=== PATIENT | female | born 1995 | race Asian ===

== ENCOUNTER → 2023-10-23 | Outpatient (REF) | payer BC ==
[2023-10-23 11:30] LABS: HCG, SERUM QUALITATIVE POSITIVE (NEGATIVE)
== END ==
LOC: M LAB REF 10:49
PROVIDERS: ATTEND Family Medicine
DX: N91.1 Secondary amenorrhea (principal)

== ENCOUNTER → 2023-11-05 | Outpatient (CLI) | payer BC | LOC: M RAD 14:52 | PROVIDERS: ATTEND Physician Assistant | DX: R10.2 Pelvic and perineal pain (principal); N83.202 Unspecified ovarian cyst, left side; R93.89 Abnormal findings on diagnostic imaging of other specified body structures ==

== ENCOUNTER 2023-11-11 09:27 | Day surgery (SDC) | payer BC ==
[~2023-11-11] VITALS: Ht 165.1 cm; Wt 62.1 kg
[2023-11-11 10:06] LABS: HEMATOCRIT 40.1 % (36.0-47.0); HEMOGLOBIN 13.4 g/dl (12.0-15.5); MEAN CORPUSCULAR HEMOGLOBIN 29.9 pg (27.0-33.0); MEAN CORPUSCULAR HGB CONC 33.4 g/dl (32.0-36.5); MEAN CORPUSCULAR VOLUME 89.5 fl (80.0-96.0); PLATELET COUNT, AUTOMATED 306 10^3/uL (150-450); RED BLOOD COUNT 4.48 10^6/uL (4.00-5.40); WHITE BLOOD COUNT 7.4 10^3/uL (4.0-10.0)
[2023-11-11] MEDS ORDERED: LIDOCAINE 2% 100MG/5ML SDV (FOR ANES.) As Ordered ONE (10:54)
[2023-11-11] MEDS ORDERED: propofoL 200 MG/20 ML VIAL As Ordered ONE (10:54)
[2023-11-11] MEDS ORDERED: fentaNYL 100 MCG/2 ML INJECTION As Ordered ONE (10:55)
[2023-11-11] MEDS ORDERED: MIDAZOLAM INJ 2MG/2ML VIAL As Ordered ONE (10:56)
[2023-11-11] MEDS: DOXYCYCLINE HYCLATE 100MG TABLET PO ONE (11:45)
[2023-11-11] MEDS ORDERED: OXYTOCIN INJ 10UNITS/ML 1ML VIAL As Ordered ONE (11:56)
[2023-11-11] MEDS ORDERED: fentaNYL 100 MCG/2 ML INJECTION IV PRN (13:05)
[2023-11-11] MEDS ORDERED: ONDANSETRON 4MG 2ML VIAL IV PRN (13:05)
[2023-11-11] MEDS ORDERED: oxyCODONE 5MG TAB PO PRN (13:05)
[2023-11-11] MEDS ORDERED: PERCOCET 5MG/325MG TAB PO PRN (13:25)
[2023-11-11 14:08] VITALS: BP 116/63; TEMP 97.6; O2SAT 100
[2023-11-11] MEDS ORDERED: KETOROLAC 30 MG/ML 1ML VIAL IV SCH (18:00)
== END 2023-11-11 14:55 | disposition home or self-care (01) ==
LOC: M SDC 09:27
PROVIDERS: ATTEND Obstetrics & Gynecology
DX: O02.1 Missed abortion (principal)
CPT/HCPCS: 59820; 81025; 85027; 86850; 86900; 86901; 88305; J2250; J2590; J3010